=== PATIENT | female | born 1945 | race Caucasian/White ===

== ENCOUNTER → 2020-04-12 | Outpatient (CLI) | payer MEDICARE | END | disposition home or self-care (01) | LOC: LAB SHORT 12:23 → LAB 12:23 | DX: R30.0 Dysuria (principal) | CPT/HCPCS: 87086 ==

== ENCOUNTER → 2023-12-23 | Outpatient (CLI) | payer MEDICARE ==
[2023-12-25 14:02] LABS: PANCREATIC ELASTASE,FECAL 479 ug/g (>=100)
== END ==
LOC: LAB SHORT 09:30 → LAB 09:30 → LAB FUT 12-19 17:40 → EDSTATUS 12-19 17:40
PROVIDERS: Internal Medicine Gastroenterology
DX: R19.7 Diarrhea, unspecified (principal); R14.0 Abdominal distension (gaseous)
CPT/HCPCS: 82653

== ENCOUNTER → 2024-06-04 | Outpatient (CLI) | payer MEDICARE | END | disposition home or self-care (01) | LOC: LAB SHORT 12:26 → LAB 12:26 | DX: R82.90 Unspecified abnormal findings in urine (principal) | CPT/HCPCS: 87077; 87086; 87186 ==

== ENCOUNTER → 2024-08-24 | Outpatient (CLI) | payer MEDICARE | LOC: LAB SHORT 12:30 → LAB 12:30 | DX: M25.571 Pain in right ankle and joints of right foot (principal) | CPT/HCPCS: 84550 ==

== ENCOUNTER → 2025-06-29 | Outpatient (CLI) | payer MEDICARE | LOC: LAB 14:32 → LAB SHORT 14:32 | DX: N39.0 Urinary tract infection, site not specified (principal) | CPT/HCPCS: 87077; 87086; 87186 ==

== ENCOUNTER → 2025-09-27 | Outpatient (CLI) | payer MEDICARE ==
[2025-09-27 14:39] LABS: Source, Urine Clean Catch
[2025-09-27 15:51] LABS: Bilirubin, Urine Neg (Neg); Color, Urine Yellow (P-Yellow); Glucose Qualitative, Urine Neg (Neg); Ketones, Urine Neg (Neg); Leukocyte Esterase, Urine Neg (Neg); Protein, Urine Neg (Neg); Specific Gravity, Urine 1.005 (1.003-1.022); Urobilinogen, Urine NORM (Normal)
== END ==
LOC: LAB SHORT 14:33 → LAB 14:33 → LAB FUT 09-20 14:35 → EDSTATUS 09-20 14:35
PROVIDERS: Nurse Practitioner Women's Health
DX: Z01.812 Encounter for preprocedural laboratory examination (principal); N39.46 Mixed incontinence
CPT/HCPCS: 81003; 87086